=== PATIENT | female | born 1970 | race Caucasian/White ===

== ENCOUNTER 2022-05-24 09:14 | Outpatient (CLI) | payer OTHER, SELFPAY ==
--- NOTE | 2022-05-24 09:15 | CRLHL7_ITS ---
For Patients: As a result of the 21st Century Cures Act, medical imaging exams and procedure reports are released immediately into your electronic medical record. You may view this report before your referring provider. If you have questions, please contact your health care provider. INDICATION: Dysphagia TECHNIQUE: Modified barium swallow. Fluoroscopic time 1 minutes 6 seconds. COMPARISON: None FINDINGS/IMPRESSION: Anatomical structures are normal. Swallowing mechanism appears within normal limits. No episodes of penetration or aspiration. Mild residual contrast located in the vallecula. Normal epiglottis retroversion. Dictated by Kenny Crespo MD @ 05/24/2022 12:09:09 PM (Electronically Signed)
== END 2022-05-24 09:15 | disposition home or self-care (01) ==
PROVIDERS: PCP Family Medicine; Visit Provider Internal Medicine Gastroenterology
DX: R13.10 Dysphagia, unspecified (principal)
CPT/HCPCS: 74230; 92611